=== PATIENT | female | born 1935 | race Caucasian/White ===

== ENCOUNTER 2016-05-26 18:36 | Observation (INO) | payer MEDICARE, OTHER ==
[~2016-05-26] VITALS: Ht 154.9 cm; Wt 122.4 kg
[~2016-05-26 18:36] MED LIST: ACET325T51 PO; ATEN100T PO; CAPS42.58 TP; DOCU100C8 PO; FENT1PAT7 TOP; FENT1PAT9 TOP; LISI-567 PO; OMEP-113 PO; ONDA4TAB9 PO; PHEN26CR RC; POLY17PO6 PO; PROM25TA14 PO; SENN8.6C6 PO; TRAM50TA2 PO; [UNRECOGNIZED DRUG - CODE] PO
[2016-05-26 18:38] VITALS: BP 194/96; PULSE 106; RESP 20; O2SAT 96
--- NOTE | 2016-05-26 18:51 | ED.REPORT ---
HPI-Chest Pain 40 and Over Date of Service May 26, 2016 ED Provider: Dr. Bajwa Pt is a 80 y/o female w/ a hx of hypertension presenting to the ED c/o intermittent dull aching left-sided chest pain with radiation to the left posterior shoulder and upper back onset this morning. She states that whenever she experiencing pain behind her left shoulder, she notices that she is hypertensive and then develops a headache. She denies any history of LBBB. Pt denies SOB, nausea, vomiting, diaphoresis, numbness, weakness, change in peripheral edema. The patient had an echocardiogram Nursing Notes Stated Complaint: JOE BEHIND LEFT ARM Chief Complaint: Chest Pain Nursing Notes Reviewed: Yes Allergies: Coded Allergies: morphine (Verified Allergy, Intermediate, Nausea,Vomiting, 11/08/13) Sulfa (Sulfonamide Antibiotics) (Verified Allergy, Unknown, UNKNOWN, ) codeine (Verified Allergy, Unknown, UNKNOWN, 05/26/16) hydromorphone (Verified Adverse Reaction, Unknown, Hallucinations, 05/26/16 ) oxycodone (Verified Adverse Reaction, Unknown, Hallucinations, 05/26/16) Scheduled Atenolol (Atenolol) 100 Mg Tablet 100 MG PO BID Bupropion ER (Bupropion ER) 150 Mg Tablet.er 150 MG PO BID Capsaicin (Capsaicin) 42.5 Gm Cream..g. 42.5 GM TP QID PRN 0.1% Docusate Sodium (Docusate Sodium) 100 Mg Capsule 200 MG PO BID Hold for loose stools Fentanyl 50 mcg/hr Patch (Fentanyl 50 mcg/hr Patch) 1 Each Patch.td72 1 EACH TOP Q 48HRS Lisinopril (Lisinopril) 20 Mg Tablet 40 MG PO BID Omeprazole Magnesium (Omeprazole) 20 Mg Capsule.dr 40 MG PO AM MAY REPEAT IN PM PRN Phenyleph/Pramoxin/Glycr/W.pet (Preparation H Cream) 26 Gm Cream..g. 26 GM RC Q4 Hemorrhoidal pain Polyethylene Glycol 3350 (Miralax) 17 Gm Powd.pack 17 GM PO DAILY Hold for loose stools Sennosides (Senna) 8.6 Mg Capsule 17.2 MG PO HS Scheduled PRN Acetaminophen (Acetaminophen) 325 Mg Tablet 1,000 MG PO TID PRN PRN For Pain Fentanyl 25 mcg/hr Patch (Fentanyl 25 mcg/hr Patch) 1 Each Patch.td72 1 EACH TOP Q3D PRN PRN For Pain Ondansetron ODT (Zofran ODT) 4 Mg Tab.rapdis 4 MG PO Q4 PRN PRN For Nausea Promethazine (Promethazine) 25 Mg Tablet 25 MG PO Q6 PRN PRN For Nausea Tramadol (Tramadol) 50 Mg Tablet 50 MG PO Q6 PRN PRN For Pain General Time Seen by MD: 18:51 Chief Complaint Chest pain Hx Obtained From: Patient Arrived By: Walk-in Sudden in Onset?: No Onset Occurred: 5 - 8 hours ago Symptom Duration: Since onset Location: : Chest left: Shoulder left Quality: Aching, Dull Radiation: : Back: Shoulder left Migration/Movement: Reports: None Severity: Current: Mild Severity: Maximum: Moderate Past Medical History Past Medical History 1. Hypertension. 2. Gastroesophageal reflux disease with hiatal hernia. 3. Chronic osteoarthritis with significant left hip and bilateral knee joint pain. 4. Chronic anemia with chronic thrombocytopenia. 5. Morbid obesity. 6. Obstructive sleep apnea, on CPAP at night. Past Surgical History Reports: Cholecystectomy Smoking History Never Smoker Social History Alcohol Use: Denies alcohol use Drug Use: Denies drug use Ambulatory Status Independent Review of Systems Respiratory: Denies: Shortness of breath Cardiovascular: Reports: Chest pain, Denies: Edema GI: Denies: Nausea, Vomiting Musculoskeletal: Reports: Extremity pain Skin: Denies Diaphoresis Neurologic: Reports: Headache, Denies: Numbness, Weakness Complete sys rev & neg: except as marked. Physical Exam Initial Vital Signs Vital Signs (First) Date Time Temp Pulse Resp B/P Pulse Ox O2 Delivery O2 Flow Rate FiO2 05/26/16 18:38 36.8 106 20 194/96 96 Room Air Initial VS: Reviewed, Vital signs abnormal Head / Eyes: Atraumatic, Normocephalic, PERRL ENT: Mucous membranes moist, Conjunctiva normal, No scleral icterus Neck: Supple, Full range of motion Skin: Warm, Dry, No cyanosis Neurologic: Alert, Oriented, Nonfocal Psychiatric: Mood/affect normal, Behavior normal, Normal thought content General/Constitutional: Awake, Alert, No acute distress, Cooperative, Not toxic appearing Respiratory / Chest: Atraumatic, Breath sounds NL, Breath sounds = bilat, No respiratory distress, No rales, No rhonchi, No wheezing, No retractions, No stridor, No chest tenderness, No chest wall deformity, No crepitus Cardiovascular: Heart rate NL, Regular rhythm, No gallop, No rubs, Cap refill not delayed, Peripheral circulation NL Heart Sounds / Murmur: Positive: Systolic murmur present.. (II/) Lower Ext Edema: Positive: Bilateral 1+ Abdomen: Atraumatic, Soft, Non-tender, No guarding, No rebound, No distention Interpretation & Diagnostics Lab Results Interpretation Result Diagram: 05/26/16190505/26/161905 Test 05/26/16 19:06 White Blood Count 9.6th/mm3 (3.8-10.1) Red Blood Count 4.18mil/mm3 (3.90-5.20) Hemoglobin 10.7g/dL (12.0-15.6) Hematocrit 35.8% (35.0-46.0) Mean Corpuscular Volume 85.6fL (81-100) Mean Corpuscular Hemoglobin 25.6pg (27.0-35.0) Mean Corpuscular Hemoglobin Concent 29.9% (32.0-37.0) Red Cell Distribution Width 20.9% (12.3-15.4) Platelet Count 159bil/L (150-400) Neutrophils (%) (Auto) 47% (40-74) Lymphocytes (%) (Auto) 32% (14-46) Monocytes (%) (Auto) 12% (4-12) Eosinophils (%) (Auto) 0% (0-5) Basophils (%) (Auto) 0% (0-3) Band Neutrophils % 5% (1-5) Metamyelocytes % 1% (0-0) Myelocytes % 4% (0-0) Nucleated Red Blood Cells 1/100 WBC (0-24) Sodium Level 137mEq/L (134-144) Potassium Level 3.9mEq/L (3.5-5.2) Chloride Level 96mEq/L (97-108) Carbon Dioxide Level 23mmol/L (18-29) Blood Urea Nitrogen 15mg/dL (8-27) Creatinine 0.74mg/dL (0.57-1.00) Estimat Glomerular Filtration Rate 108mL/min (>59) Glucose Level 119mg/dL (60-99) Calcium Level 9.5mg/dL (8.5-10.1) Magnesium Level 1.9mg/dL (1.6-2.6) Total Bilirubin 0.3mg/dL (0.0-1.2) Aspartate Amino Transf (AST/SGOT) 20U/L (0-50) Alanine Aminotransferase (ALT/SGPT) 11U/L (0-32) Alkaline Phosphatase 54U/L (25-165) Troponin T < 0.010ug/L (0.0-0.011) Pro-B-Type Natriuretic Peptide 302.2pg/mL (0-738) Total Protein 7.4g/dL (6.4-8.4) Albumin 4.8g/dL (3.4-5.0) ECG Interpretation ECG Interpretation: Sinus tachycardia rate 101 New LBBB when compared to last EKG taken Apr 06, 2014 Time: 18:53 Interpreted by: ED physician X-Ray Chest Interpretation Chest Xray Interpretation: IMPRESSION: No acute disease Dictated by: Harjinder Thornton M.D. on 05/26/2016 at 19:11 Approved by: Harjinder Thornton M.D. on 05/26/2016 at 19:11 View: Portable, 1 view Interpretation / Wet Read by: Interpret - Radiologist Re-Eval/Medical Decision Med Decision/Clinical Course 80-year-old female with past medical history of hypertension here with chest pain. Differential diagnosis includes but is not limited to ACS versus pneumonia versus pleural effusion versus dissection. At this time, the patient' s exam and history are not consistent with dissection. I do not feel she needs a CTA to rule out out. Her chest x-ray is normal. She does have a new left bundle branch block on her EKG. Given this, I have admitted her to the hospital. Her initial CBC and CMP are unremarkable, along with an initial negative troponin. Her chest pain resolved in the emergency department with sublingual nitroglycerin. She is aware and amenable to admission. Time of Eval: 20:23 Re-Evaluation/Progress Note: Pt rechecked. Chest pain decreased with nitro. Informed pt of need for admission for further cardiac workup. Pt understands and agrees with plan for admission. All questions addressed. Consultation : Referral / Consult Name: Corey Jamison MD Consulted With: Hospitalist Call Returned at: 20:22 Tax Adjuster: Will see patient, Agrees with eval, Agrees with plan, Accepts admit Counseled Regarding: Diagnosis, Lab results, Need for admission Discharge & Departure Primary Impression: Chest pain Chest pain type: unspecified Qualified Code: R07.9 - Chest pain, unspecified Additional Impression: New onset left bundle branch block (LBBB) Disposition: ADMITTED TO HOSPITAL Discharge Condition All VS Reviewed: Yes Condition: Stable Referrals: Hamlet Sim MD (PCP) Scribe Attestation Portions of this note were transcribed by Kain Odonnell. I, Dr. Bajwa, personally performed the history, physical exam and medical decision-making; I reviewed and confirmed the accuracy of the information in the transcribed note. Signed by Leander Donald, 05/26/161944 copies to: Hamlet Sim MD, Rebecca A MD May 26, 2016 18:51 KAIN ODONNELL May 26, 2016 19:11
--- NOTE | 2016-05-26 19:12 | DRSVH ---
PROCEDURE: X-RAY CHEST ONE VIEW, PORTABLE ([id number]) INDICATIONS: chest pain TECHNIQUE: One view of the chest was acquired. COMPARISON: [facility], , CHEST 1VW (PORTABLE), 04/06/2014, 11:14. FINDINGS: Surgical changes and devices: Screw projects in the proximal right humerus. Lungs and pleura: No pleural effusions or pneumothorax. Lungs are clear. Mediastinum: Mediastinal contours appear normal. Heart size is normal. Bones and chest wall: No suspicious bony lesions. Overlying soft tissues appear unremarkable. IMPRESSION: No acute disease Dictated by: Harjinder Thornton M.D. on 05/26/2016 at 19:11 Approved by: Harjinder Thornton M.D. on 05/26/2016 at 19:11
[2016-05-26 19:19] VITALS: BP 161/66; PULSE 97; RESP 15; O2SAT 95
[2016-05-26 19:25] LABS: Mean Corpuscular Hemoglobin 25.6 pg (27.0-35.0); Mean Corpuscular Volume 85.6 fL (81-100); Platelet Count 159 bil/L (150-400)
[2016-05-26 20:03] LABS: TROPONIN T < 0.010 ug/L (0.0-0.011)
[2016-05-26 20:05] LABS: BASOPHILS % (AUTO) 0 % (0-3); EOSINOPHILS % (AUTO) 0 % (0-5); MONOCYTES % (AUTO) 12 % (4-12); NEUTROPHILS % (AUTO) 47 % (40-74)
[2016-05-26 20:06] LABS: Magnesium 1.9 mg/dL (1.6-2.6)
[2016-05-26 20:23] VITALS: BP 180/82; PULSE 106; RESP 19; O2SAT 94
[2016-05-26] MEDS ORDERED: Ondansetron 2 mg/mL 2 mL Inj IVPUSH PRN ×2 (20:45→21:10)
[2016-05-26] MEDS ORDERED: Alum-Mag Hydrox-Simeth 30 mL Suspension PO PRN ×2 (20:45→21:10)
[2016-05-26] MEDS ORDERED: Polyethylene Glycol (PEG) 17 Gm Powder PO PRN (21:10)
[2016-05-26] MEDS ORDERED: MeTOProlol XL 25 mg ER24 Tablet PO SCH (22:00)
[2016-05-26 22:02] VITALS: BP 156/63; PULSE 82; RESP 20; O2SAT 97
[2016-05-26 22:28] VITALS: PULSE 85
--- NOTE | 2016-05-26 23:03 | PCM.HPMED ---
Subjective Date of Service May 26, 2016 Primary Provider: Admitting Physician: Corey Jamison MD Primary Care Physician: Quyen,[facility] Residency Attending Physician: Corey Jamison MD Chief Complaint: Chest pain History of Present Illness: Patient is a pleasant 80-year-old female with hypertension, hiatal hernia and GERD presenting with chest pain. The patient reports onset of left shoulder pain under her scapula yesterday, which she attributes to increased sewing over the past 2 weeks. She reports taking a Tylenol and this took the edge off the pain but despite this the patient was unable to get much sleep overnight. She woke up to less pain this morning but at about 16:00 she reports the pain restarted. She subsequently called a friend who came to her home and then summoned EMS. She received SL nitro in the ED, which she says helped a little. The patient describes the pain as sharp and constant without radiation. At time of visit, the patient reports her pain is minimal. Patient says her pain is in her back similar to her hiatal hernia pain. Patient endorses a headache, which she notices with elevated blood pressure but otherwise denies diaphoresis, shortness of breath, nausea, emesis, abdominal pain. In the ED, vitals: temp 36.8, HR 106, RR 20, BP 194/96. EKG in the ED shows sinus tachycardia with HR 101 and LBBB, which is a new finding since her last EKG in 2013. Troponin <0.010, Pro-BNP 302. Review of Systems: A comprehensive review of systems was conducted with the patient and found to be negative except as above in the History of Present Illness. Allergies Coded Allergies: morphine (Verified Allergy, Intermediate, Nausea,Vomiting, 11/08/13) Sulfa (Sulfonamide Antibiotics) (Verified Allergy, Unknown, UNKNOWN, ) codeine (Verified Allergy, Unknown, UNKNOWN, 05/26/16) hydromorphone (Verified Adverse Reaction, Unknown, Hallucinations, 05/26/16 ) oxycodone (Verified Adverse Reaction, Unknown, Hallucinations, 05/26/16) Home Medications Omeprazole 40mg daily Bupropion 150mg daily Lisinopril 20mg daily Metoprolol succinate 25mg QHS Tylenol PRN PMH 1) Hypertension 2) GERD 3) Osteoarthritis 4) Chronic anemia 5) Chronic thrombocytopenia 6) Obstructive sleep apnea on CPAP 7) Depression with anxiety 8) Hiatal hernia 9) Heart murmur 10) Lower extremity edema 11) Morbid obesity with BMI 51.0 12) 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 Surgical History 1) Left total hip replacement 11/09/13 2) Hysterectomy 3) Cholecystectomy complicated by infection requiring washout surgery 4) Right shoulder pinning 5) Cataract surgery Family History Mother at [id number] from CHF Father at [id number] from Alzheimer's Social History Occupation: Retired, former officeworker Hx Alcohol Use: No Hx Substance Use: No Hx Tobacco Use: No Smoking Status: Never Smoker Living Arrangement: Independent Group Home Alone Exam Vital Signs Vital Sign - Last Date Time Temp Pulse Resp B/P Pulse Ox O2 Delivery O2 Flow Rate FiO2 05/26/16 20:23 106 19 180/82 94 Room Air 05/26/16 18:38 36.8 Exam General: Patient sitting upright in bed. No acute distress, well-developed, well -nourished, appropriately interactive HEENT: Normocephalic, atraumatic. External ears without defect. Pupils equal, round, and reactive to light and accommodation. Anicteric sclerae, moist conjunctivae, and no lid lag. Moist mucosa. Endentulous. Neck: Supple. No jugular venous distension. No lymphadenopathy or thyromegaly. Cardiovascular: Regular rate and rhythm. III/ systolic murmur at base. Pulmonary: Clear to auscultation bilaterally with no crackles, wheezes, or rhonchi. Normal respiratory effort with no use of accessory muscles. Abdomen: Bowel tones present. Soft, nontender, nondistended. No hepatosplenomegaly or masses appreciated. Extremities: Mild lower extremity non-pitting edema. Skin: Normal temperature, turgor, and texture; no rash, ulcers, or subcutaneous nodules appreciated. Neurological: Cranial nerves grossly intact. Psychiatric: Normal mood and affect. Alert and oriented to person, place, and time. Lab and Diagnostics Result Diagram: 05/26/16190505/26/161905 X-Rays, CTs and MRIs Date of Service: 05/26/16 184 PROCEDURE: X-RAY CHEST ONE VIEW, PORTABLE ([id number]) INDICATIONS: chest pain TECHNIQUE: One view of the chest was acquired. COMPARISON: [facility], CR, CHEST 1VW (PORTABLE), 04/06/2014, 11: 14. FINDINGS: Surgical changes and devices: Screw projects in the proximal right humerus. Lungs and pleura: No pleural effusions or pneumothorax. Lungs are clear. Mediastinum: Mediastinal contours appear normal. Heart size is normal. Bones and chest wall: No suspicious bony lesions. Overlying soft tissues appear unremarkable. IMPRESSION: No acute disease Dictated by: Harjinder Thornton M.D. on 05/26/2016 at 19:11 Approved by: Harjinder Thornton M.D. on 05/26/2016 at 19:11 Assessment & Plan Patient is a pleasant 80-year-old female with hypertension, hiatal hernia and GERD presenting with chest pain and admitted for chest pain rule out. 1. Acute chest pain. Present on admission -ACS rule out. Cardiovascular risk factors include age, dyslipidemia and hypertension -Patient currently without chest pain. Differential includes unstable angina, aortic dissection, worsening aortic stenosis, hiatal hernia -Echo from 12/2015 showed grossly normal LV with EF 70-75% without focal wall motion abnormalities. Moderate aortic stenosis -EKG shows sinus tachycardia with new LBBB -Initial troponin negative. Continue to trend -Telemetry -Echocardiogram -SL nitro PRN 2. Hypertensive urgency. Present on admission. Improving -BP 194/96 on admit. Last BP 156/63 -Continue to monitor -Continue with home antihypertensives lisinopril and metoprolol 3. Hiatal hernia, chronic. Present on admission -Possible cause of chest pain. Patient reports pain is similar to previous hiatal hernia exacerbations -Follow clinically 4. GERD, chronic. Present on admission -Continue omeprazole 5. Depression with anxiety, chronic. Present on admission -Continue home dose bupropion 6. Obstructive sleep apnea. Present on admission 7. Morbid obesity, chronic. Present on admission -BMI 51.0 Patient Status: Patient is admitted under observation status with expected length of stay less than 2 midnights due to risk of adverse event and complexity of treatment plan. VTE Prophylaxis: Sub-Q Heparin (Unfractionated) Resuscitation Status: DNR/DNI:Do Not Resuscitate/Intubate Attending Statement The patient was seen and examined together with Dr. Naylor on 05/26 and I agree with the history, exam and plan as outlined in the note above. Chuy Naylor DO May 26, 2016 21:43 Corey Jamison MD May 27, 2016 01:40
--- NOTE | 2016-05-26 23:18 | NUR ---
admit note: pt. admitted for left shoulder pain since yesterday, not going away today pt. also c/o headache likely due to htn so she came to ER. pt. currently denies chest pain or sob. bp now 153/80
[2016-05-27] MEDS: Heparin 5,000 Unit/mL Inj SUBQ SCH ×3 (00:03→17:35)
[2016-05-27 01:42] VITALS: BP 117/65; PULSE 78; RESP 18; O2SAT 96
[2016-05-27 06:31] VITALS: BP 145/75; PULSE 80; RESP 18; O2SAT 95
[2016-05-27 06:51] LABS: Mean Corpuscular Hemoglobin 25.8 pg (27.0-35.0); Mean Corpuscular Volume 86.9 fL (81-100); Platelet Count 156 bil/L (150-400)
[2016-05-27 08:12] LABS: BASOPHILS % (AUTO) 1 % (0-3); EOSINOPHILS % (AUTO) 1 % (0-5); MONOCYTES % (AUTO) 18 % (4-12); NEUTROPHILS % (AUTO) 45 % (40-74)
[2016-05-27] MEDS ORDERED: Pantoprazole 40 mg ER24 Tablet PO SCH (08:57)
[2016-05-27 10:24] VITALS: BP 153/87; PULSE 87; RESP 18; O2SAT 96
[2016-05-27 11:19] VITALS: PULSE 77
--- NOTE | 2016-05-27 12:22 | NUR ---
Transferred to CT Patient transferred to CT at 1222.
[2016-05-27] MEDS: buPROPion SR 150 mg ER12 Tablet PO SCH ×2 (13:02→17:35)
--- NOTE | 2016-05-27 13:55 | DRSVH ---
PROCEDURE: CT ANG CHEST/ABD W/WO CONTRAST ([id number]) INDICATIONS: chest pain TECHNIQUE: Precontrast 5 mm thick sections acquired from the lung apices to the iliac crests. After the adminis tration of intravenous contrast, 3 mm thick sections again acquired from the lung apices to the iliac crests. 3-dimensional maximum intensity projection (MIP) oblique sagittal and coronal reformats wer e then acquired, and/or 3-dimensional volume rendering reformats. For radiation dose reduction, the following was used: automated exposure control. COMPARISON: [facility], CT, ABD/PELVIS W/CON (PNL), 12/17/2013, 21:18. FINDINGS: Image quality: Partially degraded by motion artifact AORTA: There is mild diffuse plaque within the thoracoabdominal aorta. No evidence of significant st enosis, nor aneurysm, nor dissection within the aorta. CHEST: Lungs and pleura: No acute airspace opacities. 2 mm calcification along the lateral aspect of the r ight major fissure. Mild bibasilar atelectasis. There is a fat containing left posterior hemidiaphrag matic hernia. No pleural effusions or pneumothorax. Central and peripheral airways are patent and no rmal in caliber. Mediastinum: Heart size is enlarged. There is calcification of the coronary vasculature. No pericard ial effusion. No mediastinal or hilar adenopathy by size criteria. Central pulmonary arteries are n ormal in size. Esophagus is normal in caliber. No hiatal hernias. Bones and chest wall: No axillary adenopathy by size criteria. Thyroid gland is within normal limit s. No suspicious bony lesions. No vertebral body compression fractures. ABDOMEN: Vasculature: Celiac trunk and mesenteric arteries are patent. Renal arteries are also patent. Solid organs: Liver is mildly enlarged, measuring 19 cm craniocaudal. Spleen is within normal limits . Presumed vascular calcifications within the spleen. Gallbladder is not seen. Biliary system is non dilated. Pancreas enhances normally. No change in 12 mm diameter low-density adrenal nodule, which demonstrates noncontrast Hounsfield units of 17. No right adrenal nodules. Both kidneys are normal in size and enhancement, without hydronephrosis. Peritoneum and bowel: No free fluid or air. Bowel loops are normal in caliber and wall thickness. Nodes and vessels: No retroperitoneal or mesenteric adenopathy by size criteria. Inferior vena cava is normal in morphology. Mild celiac artery origin stenosis. There is moderate to high-grade superi or mesenteric artery origins stenosis. Bones: No suspicious bony lesions. No change in T12 lucency, consistent with a hemangioma. No verteb ral body compression fractures. Miscellaneous: No ventral hernias. IMPRESSION: 1. Mild diffuse plaque involving the thoracoabdominal aorta. No evidence of aortic dissection, aneury sm, nor significant stenosis. 2. Coronary artery disease and cardiomegaly. 3. Remote granulomatous disease. 4. Hepatomegaly. 5. No change in left adrenal nodule, which could be further assessed with MRI, if clinically indicate d. Dictated by: Bright Berg M.D. on 05/27/2016 at 13:47 Approved by: Bright Berg M.D. on 05/27/2016 at 13:54
[2016-05-27 14:27] VITALS: BP 138/80; PULSE 78; RESP 18; O2SAT 96
--- NOTE | 2016-05-27 15:30 | NUR ---
Social Work Initial Assessment: SW met with patient at bedside to discuss discharge plan. Patient is a 80 year old female admitted on 05/26/16 for chest pain, L bundle branch block. Patient payer as Medicare. [employer] secondary. 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 Patient PCP as MD Dudley as [facility] Residency clinic. Patient states residing in [place] alone. Patient states being independent with needs and states conducts all ADL's independently. Patient states having no previous HHC history. Patient has previous SNF history at [facility]. Patient has a walker and cane at home. Patient states having AD on file. Patient states having no identified discharge needs at this time and states emergency contact as daughter Ally, who checks in to assist with needs. Per report in rounds, patient refusing stress test. No anticipated discharge needs at this time. SW to follow. PLAN: Home alone in [place]. Transport home via daughter POV. No anticipated discharge needs at this time. SW to follow pending clinical course Stu PIRES Addendum: 05/27/16 at 1534 by LIZETT MARCUS Amended: Links added.
--- NOTE | 2016-05-27 15:54 | NUR ---
Case Management: Explained THOMPSON to patient. She denied questions. Patient signed, copy given to her and original in hard chart. CPerryRNCCM.
[2016-05-27 17:07] VITALS: BP 160/90; PULSE 86; RESP 18; O2SAT 96
--- NOTE | 2016-05-27 17:49 | DRSVH ---
[facility] [address] [place] [address] Echocardiogram Report Name: KATHERINE BLOCK SStudy Duc e: 05/27/2016 Height: 61 in Hospital Exam Location: [facility] Weight: 270 lb Gender: Female BSA: 2.1 m2 : 1935 Age: 80 yrs BP: 145/75 mmHg Reason For Study: CHEST PAIN Ordering Physician: Performed By: Bernardo Herrmann Referring Physician: PATTI BORDEN Interpretation Summary The left ventricle is normal in size. Left ventricular wall thickness is mildly increased. The ejection fraction is estimated to be 65-70%. The right ventricle is normal in size and function. There is no pericardial effusion. Compared to the study on 01/08/2016, no significant change is seen. This was a limited study, not assessing valvular function. Procedure: A limited 2D echo was performed for chest pain. The study quality was technically adequate. Comparison is made with the echocardiogram of 01/08/16. The patient was in normal sinus rhythm during the exam. Left Ventricle: The left ventricle is normal in size. Left ventricular wall thickness is mildly increased. The ejection fraction is estimated to be 65- 70%. Right Ventricle: The right ventricle is normal in size and function. Pericardium/ Pleura There is no pericardial effusion. Reading Physician:05:48 PM
--- NOTE | 2016-05-27 18:01 | PCM.DIMED ---
Discharge Instructions Date of Service May 27, 2016 Dates of Hospitalization May 26, 2016 at 21:21 Discharge Diagnosis Discharge Diagnosis 1. Acute left scapular pain, present on admission. Resolved. Unclear etiology. - Ruled out for myocardial infarction by negative enzymes. - Ruled out for dissection with negative CT angiography 2. Hypertensive urgency. Present on admission. Improved. 3. Hiatal hernia, chronic. Present on admission. stable. 4. GERD, chronic. stable. 5. Depression with anxiety, chronic. stable. 6. Obstructive sleep apnea. Present on admission 7. Morbid obesity, chronic. -BMI 51.0 Medication Instructions Resume home medications as before Diet Low fat, Low Sodium, Heart Healthy Activity No restrictions Call your provider Fever or Chills, Shortness of breath, Chest pain Patient Instructions Seek immediate medical attention if any new or worsening signs or symptoms occur. Follow-up plan 1. Followup with primary care provider within the coming week or so Follow-up Provider: [facility] Res[facility] Peter Kendall May 27, 2016 18:00
--- NOTE | 2016-05-27 18:06 | PCM.DC.MED ---
Discharge Summary Date of Service May 27, 2016 Dates of Hospitalization Date of Hospital Admission May 26, 2016 at 21:21 Date of Discharge: May 27, 2016 Providers: Admitting Physician: Corey Jamison MD Primary Care Physician: CHRISTINE Napier Residency Attending Physician: Corey Jamison MD Diagnosis at Time of Discharge Diagnosis at Time of Discharge 1. Acute left scapular pain, present on admission. Resolved. Unclear etiology. - Ruled out for myocardial infarction by negative enzymes. - Ruled out for dissection with negative CT angiography 2. Hypertensive urgency. Present on admission. Improved. 3. Hiatal hernia, chronic. Present on admission. stable. 4. GERD, chronic. stable. 5. Depression with anxiety, chronic. stable. 6. Obstructive sleep apnea. Present on admission 7. Morbid obesity, chronic. -BMI 51.0 Procedures XRay, CTs & MRIs Date of Service: 05/26/16 1843 PROCEDURE: X-RAY CHEST ONE VIEW, PORTABLE ([id number]) IMPRESSION: No acute disease Dictated by: Harjinder Thornton M.D. on 05/26/2016 at 19:11 Approved by: Harjinder Thornton M.D. on 05/26/2016 at 19:11 Date of Service: 05/27/16 1057 PROCEDURE: CT ANG CHEST/ABD W/WO CONTRAST ([id number]) IMPRESSION: 1. Mild diffuse plaque involving the thoracoabdominal aorta. No evidence of aortic dissection, aneurysm, nor significant stenosis. 2. Coronary artery disease and cardiomegaly. 3. Remote granulomatous disease. 4. Hepatomegaly. 5. No change in left adrenal nodule, which could be further assessed with MRI, if clinically indicated. Dictated by: Bright Berg M.D. on 05/27/2016 at 13:47 Approved by: Bright Berg M.D. on 05/27/2016 at 13:54 Cardiac Echo Impression Date of Service: 05/27/16 2107 Echocardiogram Report Interpretation Summary The left ventricle is normal in size. Left ventricular wall thickness is mildly increased. The ejection fraction is estimated to be 65-70%. The right ventricle is normal in size and function. There is no pericardial effusion. Compared to the study on 01/08/2016, no significant change is seen. This was a limited study, not assessing valvular function. Reading Physician:05:48 PM Brief History As noted in H&P by Dr. Naylor: Patient is a pleasant 80-year-old female with hypertension, hiatal hernia and GERD presenting with chest pain. The patient reports onset of left shoulder pain under her scapula yesterday, which she attributes to increased sewing over the past 2 weeks. She reports taking a Tylenol and this took the edge off the pain but despite this the patient was unable to get much sleep overnight. She woke up to less pain this morning but at about 16:00 she reports the pain restarted. She subsequently called a friend who came to her home and then summoned EMS. She received SL nitro in the ED, which she says helped a little. The patient describes the pain as sharp and constant without radiation. At time of visit, the patient reports her pain is minimal. Patient says her pain is in her back similar to her hiatal hernia pain. Patient endorses a headache, which she notices with elevated blood pressure but otherwise denies diaphoresis, shortness of breath, nausea, emesis, abdominal pain. In the ED, vitals: temp 36.8, HR 106, RR 20, BP 194/96. EKG in the ED shows sinus tachycardia with HR 101 and LBBB, which is a new finding since her last EKG in 2013. Troponin <0.010, Pro-BNP 302. Hospital Course 1. Acute left scapular pain. Resolved -ACS ruled out. -dissection ruled out with CTA -Echo unremarkable as noted above -patient adamantly refused to do stress test and noted that there is no way she would consider cardiac cath either. -recommended for her to followup with PCP 2. Hypertensive urgency. Present on admission. Improved -Continue with home antihypertensives lisinopril and metoprolol 3. Hiatal hernia, chronic. Present on admission -Possible cause of presenting symptoms. Patient reports pain is similar to previous hiatal hernia exacerbations 4. GERD, chronic. Present on admission -Continue omeprazole 5. Depression with anxiety, chronic. Present on admission -Continue home dose bupropion 6. Obstructive sleep apnea. Present on admission 7. Morbid obesity, chronic. Present on admission -BMI 51.0 by day of d/c lungs CTA bilat. patient remains asymptomatic and insists on going home Exam Vital Signs (Last) Date Time Temp Pulse Resp B/P Pulse Ox O2 Delivery O2 Flow Rate FiO2 05/27/16 17:07 36.7 86 18 160/90 96 Room Air Test 05/26/16 19:06 05/27/16 02:20 05/27/16 05:35 Magnesium Level 1.9mg/dL (1.6-2.6) Pro-B-Type Natriuretic Peptide 302.2pg/mL (0-738) Lipase 58U/L (13-60) Troponin T 0.010ug/L (0.0-0.011) White Blood Count 8.8th/mm3 (3.8-10.1) Red Blood Count 3.88mil/mm3 (3.90-5.20) Hemoglobin 10.0g/dL (12.0-15.6) Hematocrit 33.7% (35.0-46.0) Mean Corpuscular Volume 86.9fL (81-100) Mean Corpuscular Hemoglobin 25.8pg (27.0-35.0) Mean Corpuscular Hemoglobin Concent 29.7% (32.0-37.0) Red Cell Distribution Width 20.9% (12.3-15.4) Platelet Count 156bil/L (150-400) Neutrophils (%) (Auto) 45% (40-74) Lymphocytes (%) (Auto) 25% (14-46) Monocytes (%) (Auto) 18% (4-12) Eosinophils (%) (Auto) 1% (0-5) Basophils (%) (Auto) 1% (0-3) Band Neutrophils % 6% (1-5) Metamyelocytes % 1% (0-0) Myelocytes % 3% (0-0) Nucleated Red Blood Cells 2/100 WBC (0-24) Sodium Level 139mEq/L (134-144) Potassium Level 4.1mEq/L (3.5-5.2) Chloride Level 100mEq/L (97-108) Carbon Dioxide Level 27mmol/L (18-29) Blood Urea Nitrogen 13mg/dL (8-27) Creatinine 0.82mg/dL (0.57-1.00) Estimat Glomerular Filtration Rate 96mL/min (>59) Glucose Level 99mg/dL (60-99) Calcium Level 9.1mg/dL (8.5-10.1) Total Bilirubin 0.2mg/dL (0.0-1.2) Aspartate Amino Transf (AST/SGOT) 18U/L (0-50) Alanine Aminotransferase (ALT/SGPT) 9U/L (0-32) Alkaline Phosphatase 49U/L (25-165) Total Protein 6.6g/dL (6.4-8.4) Albumin 4.5g/dL (3.4-5.0) Discharge Medications Discharge Medications Atenolol (Atenolol) 100 Mg Tablet 100 MG PO BID (Reported) Bupropion ER (Bupropion ER) 150 Mg Tablet.er 150 MG PO BID (Reported) Capsaicin (Capsaicin) 42.5 Gm Cream..g. 42.5 GM TP QID PRN (Reported) 0.1% Docusate Sodium (Docusate Sodium) 100 Mg Capsule 200 MG PO BID (Reported) Hold for loose stools Fentanyl 50 mcg/hr Patch (Fentanyl 50 mcg/hr Patch) 1 Each Patch.td72 1 EACH TOP Q 48HRS (Reported) Lisinopril (Lisinopril) 20 Mg Tablet 40 MG PO BID (Reported) Omeprazole Magnesium (Omeprazole) 20 Mg Capsule.dr 40 MG PO AM (Reported) MAY REPEAT IN PM PRN Phenyleph/Pramoxin/Glycr/W.pet (Preparation H Cream) 26 Gm Cream..g. 26 GM RC Q4 (Reported) Hemorrhoidal pain Polyethylene Glycol 3350 (Miralax) 17 Gm Powd.pack 17 GM PO DAILY (Reported) Hold for loose stools Sennosides (Senna) 8.6 Mg Capsule 17.2 MG PO HS (Reported) As needed Acetaminophen (Acetaminophen) 325 Mg Tablet 1,000 MG PO TID PRN PRN For Pain ( Reported) Fentanyl 25 mcg/hr Patch (Fentanyl 25 mcg/hr Patch) 1 Each Patch.td72 1 EACH TOP Q3D PRN PRN For Pain Prescribed by: TERENCE GALINDO DO Ondansetron ODT (Zofran ODT) 4 Mg Tab.rapdis 4 MG PO Q4 PRN PRN For Nausea ( Reported) Promethazine (Promethazine) 25 Mg Tablet 25 MG PO Q6 PRN PRN For Nausea ( Reported) Tramadol (Tramadol) 50 Mg Tablet 50 MG PO Q6 PRN PRN For Pain (Reported) Additional med instructions Resume home medications as before Followup Plan Disposition: Home Follow-up plan 1. Followup with primary care provider within the coming week or so Discharge Diet: Low fat, Low Sodium, Heart Healthy Discharge Activity: No restrictions Patient Instructions Seek immediate medical attention if any new or worsening signs or symptoms occur. Follow-up Provider: [facility] Time spent 40 min copies to: [facility] Peter Kendall May 27, 2016 18:06
--- NOTE | 2016-05-27 19:14 | NUR ---
Discharge Patient discharge to home with all belongings. Explained to patient when next medications and due and discharge instructions. Patient verbalized understanding. Dc'd IV intact. Dc'd telemetry. Vitals stable. Patient left floor via wheelchair accompanied by daughter and primary rn with no signs of distress.
== END 2016-05-27 19:10 | disposition home or self-care (01) ==
LOC: SED 18:36 → MPC 21:21
PROVIDERS: ADMIT Hospitalist; ATTEND Hospitalist
DX: M25.512 Pain in left shoulder (principal); I16.0 Hypertensive urgency; I10 Essential (primary) hypertension; K21.9 Gastro-esophageal reflux disease without esophagitis; K44.9 Diaphragmatic hernia without obstruction or gangrene; G47.33 Obstructive sleep apnea (adult) (pediatric); F32.9 Major depressive disorder, single episode, unspecified; F41.9 Anxiety disorder, unspecified; E66.01 Morbid (severe) obesity due to excess calories; Z68.43 Body mass index [BMI] 50.0-59.9, adult
CPT/HCPCS: 36415; 71010; 71275; 74175; 80053; 83690; 83735; 83880; 84484; 85025; 93005; 99285; C8924; G0378; J1644; Q9967

== ENCOUNTER 2016-08-14 07:33 | Emergency (ER) | payer MEDICARE, OTHER ==
[~2016-08-14] VITALS: Ht 157.5 cm; Wt 127.3 kg
[2016-08-14] VITALS (10 sets, daily range): BP systolic 167–207; BP diastolic 76–100; PULSE 68–84; RESP 12–21; O2SAT 95–99
--- NOTE | 2016-08-14 07:52 | ED.REPORT ---
HPI-General Illness Date of Service August 14, 2016 ED Provider: Dennis Guajardo MD The patient is a 80 year old female w/ a hx of HTN who presents to the ED due to high blood pressure onset yesterday. Associated symptoms include headache, dizziness, nausea, loss of appetite, and left shoulder pain radiating to left arm. Pt admits she has a lot of stressful things going on in her life. She tearfully states that her "stress caught up with her yesterday." Pt was seen at the ED 05/26/16 and admitted for a newly found LBBB. She denies chest pain, SOB, vomiting, difficulty speaking or swallowing, weakness, or numbness. She is currently on lisinopril which she took this morning. Nursing Notes Stated Complaint: HIGH BLOOD PRESSURE, PAIN IN SHOULDER Chief Complaint: General Complaint Nursing Notes Reviewed: Yes Allergies: Coded Allergies: morphine (Verified Allergy, Intermediate, Nausea,Vomiting, 11/08/13) Sulfa (Sulfonamide Antibiotics) (Verified Allergy, Unknown, UNKNOWN, ) codeine (Verified Allergy, Unknown, UNKNOWN, 05/26/16) hydromorphone (Verified Adverse Reaction, Unknown, Hallucinations, 05/26/16 ) oxycodone (Verified Adverse Reaction, Unknown, Hallucinations, 05/26/16) Scheduled Bupropion ER (Bupropion ER) 150 Mg Tablet.er 150 MG PO DAILY Lisinopril (Lisinopril) 20 Mg Tablet 20 MG PO DAILY Metoprolol Succinate ER (Metoprolol Succinate ER) 25 Mg Tab.er.24h 25 MG PO HS Omeprazole (Omeprazole) 40 Mg Capsule.dr 40 MG PO DAILY Scheduled PRN Acetaminophen (Acetaminophen) 325 Mg Tablet 1,000 MG PO TID PRN PRN For Pain General Time Seen by MD: 07:51 Chief Complaint Other (high blood pressure) Hx Obtained From: Patient Arrived By: Walk-in Sudden in Onset?: Yes Onset Occurred: 1 - 4 hours ago Symptom Duration: Since onset Location: : Shoulder left Quality: Painful Radiation: : Arm left Severity: Current: Mild Recent Healthcare: Recent doctor visit, Recent hospitalization Similar Sx Previous: Yes Past Medical History Past Medical History 1. Hypertension. 2. Gastroesophageal reflux disease with hiatal hernia. 3. Chronic osteoarthritis with significant left hip and bilateral knee joint pain. 4. Chronic anemia with chronic thrombocytopenia. 5. Morbid obesity. 6. Obstructive sleep apnea, on CPAP at night. Past Surgical History Reports: Cholecystectomy Smoking History Never Smoker Social History Alcohol Use: Denies alcohol use Drug Use: Denies drug use Ambulatory Status Independent Review of Systems Full Review of Systems Cardiovascular: Denies: Chest pain GI: Reports: Nausea, Denies: Vomiting Musculoskeletal: Reports: Joint pain (left shoulder) Neurologic: Reports: Dizziness, Headache, Denies: Numbness, Slurred speech, Weakness Complete sys rev & neg: except as marked. Physical Exam Vital Signs Vital Signs Date Time Temp Pulse Resp B/P Pulse Ox O2 Delivery O2 Flow Rate FiO2 08/14/16 10:39 73 17 169/76 98 08/14/16 10:14 68 18 172/79 96 Room Air 08/14/16 10:04 71 13 183/79 97 Room Air 08/14/16 09:50 71 17 181/91 98 Room Air 08/14/16 09:32 72 19 185/85 95 Room Air 08/14/16 09:29 76 18 173/100 96 Room Air 08/14/16 08:45 197/90 08/14/16 08:43 79 21 207/83 98 Room Air 08/14/16 07:38 36.2 82 12 188/96 99 Room Air Initial VS: Reviewed General/Constitutional: Well-developed, Well-nourished Head / Eyes: Atraumatic, Normocephalic ENT: Mucous membranes moist, Conjunctiva normal Respiratory: Breath sounds normal, Clear to auscultation Extremities: Vascular intact, Neuro intact, No swelling Heart Sounds / Murmur: Positive: Murmur location... (2nd L intercostal), Systolic murmur present.. (II/) Interpretation & Diagnostics Lab Results Interpretation Result Diagram: 08/14/16 0755 08/14/16 0755 Test 08/14/16 07:55 08/14/16 09:46 White Blood Count 10.6th/mm3 (3.8-10.1) Red Blood Count 4.07mil/mm3 (3.90-5.20) Hemoglobin 10.9g/dL (12.0-15.6) Hematocrit 35.2% (35.0-46.0) Mean Corpuscular Volume 86.5fL (81-100) Mean Corpuscular Hemoglobin 26.8pg (27.0-35.0) Mean Corpuscular Hemoglobin Concent 31.0% (32.0-37.0) Red Cell Distribution Width 20.4% (12.3-15.4) Platelet Count 141bil/L (150-400) Neutrophils (%) (Auto) 58% (40-74) Lymphocytes (%) (Auto) 19% (14-46) Monocytes (%) (Auto) 13% (4-12) Eosinophils (%) (Auto) 0% (0-5) Basophils (%) (Auto) 0% (0-3) Band Neutrophils % 4% (1-5) Metamyelocytes % 4% (0-0) Myelocytes % 2% (0-0) Nucleated Red Blood Cells 2/100 WBC (0-24) Sodium Level 139mEq/L (134-144) Potassium Level 4.0mEq/L (3.5-5.2) Chloride Level 100mEq/L (97-108) Carbon Dioxide Level 21mmol/L (18-29) Blood Urea Nitrogen 12mg/dL (8-27) Creatinine 0.70mg/dL (0.57-1.00) Estimat Glomerular Filtration Rate 116mL/min (>59) Glucose Level 118mg/dL (60-99) Calcium Level 9.6mg/dL (8.5-10.1) Magnesium Level 1.9mg/dL (1.6-2.6) Total Bilirubin 0.4mg/dL (0.0-1.2) Aspartate Amino Transf (AST/SGOT) 23U/L (0-50) Alanine Aminotransferase (ALT/SGPT) 8U/L (0-32) Alkaline Phosphatase 60U/L (25-165) Total Protein 7.6g/dL (6.4-8.4) Albumin 4.8g/dL (3.4-5.0) Troponin T < 0.010ug/L (0.0-0.011) ECG Interpretation ECG Interpretation: LBBB Time: 18:52 Interpreted by: ED physician Rhythm / Conduction: Tachycardia (101) X-Ray Chest Interpretation Chest Xray Interpretation: IMPRESSION: No acute cardiopulmonary disease. Dictated by: Hari King RRA Interpreted: Sophy Mac MD on 08/14/2016 at 8:18 Transcribed by: JU on 08/14/2016 at 8:18 View: Portable Interpretation / Wet Read by: Interpret - Radiologist CT Head Interpretation IMPRESSION: No acute intracranial process. Dictated by: Harjinder Thornton M.D. on 08/14/2016 at 8:29 Approved by: Harjinder Thornton M.D. on 08/14/2016 at 8:32 Study: Head CT no contrast Interpretation / Wet Read by: Interpret - Radiologist Re-Eval/Medical Decision Med Decision/Clinical Course 80-year-old female history of hypertension presenting with elevated blood pressures and headache. On arrival her blood pressure was 210 systolic. She had no neurological deficits. She is complaining of headache and left shoulder pain. She reports left shoulder pain is chronic. Her blood pressure improved with IV metoprolol down to 170 systolic. Her headache and shoulder pain resolved. Concern for hypertensive emergency versus urgency. However her symptoms are resolved. Her labs are stable. Troponins negative. Discussed with patient and she declines admission and decided to go home. She will return immediately should she have any headache, chest pain, shortness of breath, blurry vision, any other nursing symptoms. Time of Eval: 09:39 Patient Status: Pain improved Re-Evaluation/Progress Note: Pt does not want to be admitted. Her headache has improved. Plan to repeat troponin. Counseled Regarding: Diagnosis, Lab results, Need for follow-up, When/why to return to ED Discharge & Departure Primary Impression: Hypertensive urgency Disposition: Home Discharge Condition All VS Reviewed: Yes Condition: Stable Additional Instructions: Your laboratory work is normal. You have decided to go home rather than be admitted. If you have any chest pain, shortness of breath, blurry vision, or headache, or if your blood pressure is over 180 systolic or 90 diastolic return to the Emergency Department. Follow up with your primary care physician tomorrow for recheck. I hope you feel better soon! Referrals: [facility] (PCP) Scribe Attestation Portion of this note were transcribed by Guillermina Hernandez. I, Dr. Guajardo, personally performed the history, physical exam, and medical decision-making: I reviewed and confirmed the accuracy for the information in the transcribed note. Signed by: daily Frye, 08/14/16 1100 copies to: [facility] Dennis Guajardo MD August 14, 2016 07:52 Guillermina Hernandez August 14, 2016 08:01
[2016-08-14] MEDS ORDERED: Labetalol 5 mg/mL 4 mL Inj IVPUSH ONE (08:05)
[2016-08-14 08:08] LABS: Mean Corpuscular Hemoglobin 26.8 pg (27.0-35.0); Mean Corpuscular Volume 86.5 fL (81-100); Platelet Count 141 bil/L (150-400)
[2016-08-14] MEDS ORDERED: LISI40TA PO (08:08)
[2016-08-14] MEDS ORDERED: BUPR150T12 PO (08:08)
[2016-08-14] MEDS ORDERED: OMEP40CA36 PO (08:08)
--- NOTE | 2016-08-14 08:18 | DRSVH ---
PROCEDURE: X-RAY CHEST ONE VIEW, PORTABLE ([id number]) INDICATIONS: HIGH bp, PAIN TECHNIQUE: One view of the chest was acquired. COMPARISON: None. FINDINGS: Surgical changes and devices: None. Lungs and pleura: No pleural effusions or pneumothorax. Lungs are clear. Mediastinum: Mediastinal contours appear normal. Heart size is prominent. Bones and chest wall: No suspicious bony lesions. Overlying soft tissues appear unremarkable. IMPRESSION: No acute cardiopulmonary disease. Dictated by: Hari King [facility] Interpreted: Sophy Mac MD on 08/14/2016 at 8:18 Transcribed by: JU on 08/14/2016 at 8:18 Approved by: Sophy Mac MD, PhD on 08/14/2016 at 16:36
--- NOTE | 2016-08-14 08:34 | DRSVH ---
PROCEDURE: CT BRAIN WITHOUT CONTRAST ([id number]) INDICATIONS: headache, markedly elevated BP TECHNIQUE: Noncontrast 4.5 mm thick angled axial sections acquired from the foramen magnum to the vertex, with c oronal reformats. COMPARISON: [facility], CT, BRAIN W/O CONTRAST, 04/06/2014, 11:49. FINDINGS: Image quality: Excellent. CSF spaces: Basal cisterns are patent. No extra-axial fluid collections. The ventricles are symmet rayna in size and shape. Brain: No intracranial bleeds or masses. There is cerebral volume loss for age, with resultant vent ricular and sulcal prominence. There are periventricular and deep white matter chronic small vessel ischemic changes. There is intracranial internal carotid artery atherosclerosis. Skull and face: Calvarium and visualized facial bones appear intact, without suspicious lesions. Sinuses: Visualized sinuses and mastoids are clear. IMPRESSION: No acute intracranial process. Dictated by: Harjinder Thornton M.D. on 08/14/2016 at 8:29 Approved by: Harjinder Thornton M.D. on 08/14/2016 at 8:32
[2016-08-14 08:37] LABS: BASOPHILS % (AUTO) 0 % (0-3); EOSINOPHILS % (AUTO) 0 % (0-5); MONOCYTES % (AUTO) 13 % (4-12); NEUTROPHILS % (AUTO) 58 % (40-74)
[2016-08-14 08:56] LABS: Magnesium 1.9 mg/dL (1.6-2.6); TROPONIN T < 0.010 ug/L (0.0-0.011)
[2016-08-14] MEDS: MeTOProlol 1 mg/mL 5 mL Inj IVPUSH SCH ×3 (09:30→10:14)
[2016-08-14] MEDS ORDERED: LISI-567 PO (10:09)
[2016-08-14] MEDS ORDERED: METO25TA99 PO (10:09)
== END 2016-08-14 11:30 | disposition home or self-care (01) ==
LOC: SED 07:33
DX: I16.0 Hypertensive urgency (principal); M25.512 Pain in left shoulder; G89.29 Other chronic pain; K21.9 Gastro-esophageal reflux disease without esophagitis; M19.90 Unspecified osteoarthritis, unspecified site; D64.9 Anemia, unspecified; D69.6 Thrombocytopenia, unspecified; E66.01 Morbid (severe) obesity due to excess calories; I44.7 Left bundle-branch block, unspecified; Z68.43 Body mass index [BMI] 50.0-59.9, adult; Z88.5 Allergy status to narcotic agent; Z88.2 Allergy status to sulfonamides